=== PATIENT | female | born 1940 | race Caucasian/White ===

== ENCOUNTER 2022-02-10 19:06 | Emergency (ER) | payer MEDICARE, SELFPAY ==
[2022-02-10] VITALS (11 sets, daily range): BP systolic 129–138; BP diastolic 65–78; PULSE 64–80; RESP 12–20; TEMP 36.1; O2SAT 93–100
--- NOTE | ~2022-02-10 | XR_ITS ---
EXAMINATION: XR chest 1V portable DATE: 02/10/2022 19:50 INDICATION: Fall. Dizziness. Weakness. TECHNIQUE: A single frontal view of the chest was obtained. COMPARISON: None. FINDINGS: There is no pneumonia, pleural effusion, or pneumothorax. The heart size is normal. IMPRESSION: 1. No acute cardiopulmonary disease. Reviewed, dictated and finalized at location A.
--- NOTE | ~2022-02-10 | CT_ITS ---
EXAMINATION: CT brain wo con DATE: 02/10/2022 19:47 INDICATION: Dizziness. Weakness. TECHNIQUE: Computed tomography (CT) of the head was performed without intravenous contrast. The mA wa s adjusted according to patient size. Iterative reconstruction technique was employed. The dose-lengt h product was 605.33 mGy-cm. COMPARISON: None FINDINGS: There is no intracranial hemorrhage, acute infarction, or abnormal intracranial mass lesion . There are scattered areas of low attenuation in the cerebral white matter. The ventricles are timothy l in size. The orbits are normal. There is mucosal thickening in the paranasal sinuses. The mastoid a ir cells are normal. IMPRESSION: 1. Mild nonspecific cerebral white matter disease, which likely represents chronic small vessel ische bibiana disease. Reviewed, dictated and finalized at location A. IMPRESSION: 1. 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
[2022-02-10 19:14] LABS: Glucose Point of Care 125 mg/dl (65-105)
--- NOTE | 2022-02-10 19:23 | ECG_ITS ---
Measurements Intervals [place] Rate: 72 P: 15 TX: 144 QRS: 4 QRSD: 85 T: 12 QT: 397 QTc: 437 Interpretive Statements SINUS RHYTHM NORMAL ECG NO PREVIOUS ECG AVAILABLE FOR COMPARISON Electronically Signed On 02-11-2022 9:36:20 CDT by Niraj Darnell M.D.
--- NOTE | 2022-02-10 19:23 | PC.NURSE ---
Dr Castaneda at bedside, requesting patient eat food.
--- NOTE | 2022-02-10 19:25 | ED.WEAKNESS ---
HPI - Weakness General Chief complaint: Weakness Stated complaint: weakness/ BG 38 Source: RN notes reviewed History of Present Illness HPI Narrative: Patient presents emergency department from home via EMS for hypoglycemia. Patient states that she has been feeling weak today and had a total of 2 falls she said her most recent fall was when she just slumped to the ground she states that she had been feeling weak and dizzy today she states that when she went to the ground she did not hit her head and did not have any loss of consciousness EMS was called and when they arrived her blood sugar was noted to be in the 30s. The patient states she does have a history of diabetes and is on oral medication she states she took her medication this morning she states she did not eat dinner this evening she denies any fevers or chills chest pain shortness of breath abdominal pain nausea or vomiting states she did have an upper respiratory infection over the weekend and her and her both been coughing Related Data Allergies Allergy/AdvReac Type Severity Reaction Status Date / Time No Known Allergies Allergy Verified 02/10/22 19:18 Review of Systems Review of Systems: Gen.: Denies fevers or chills Eyes: Denies eye pain or visual change ENT: Denies congestion Respiratory: Denies shortness of breath reports cough CV: Denies chest pain or palpitations GI: Denies abdominal pain nausea, emesis Musculoskeletal: Denies back pain or muscle pain Neuro: Reports weakness Skin: Denies rash Endocrine: See HPI Except as documented, all other systems reviewed and negative [facility] Past Medical History Medical History (Updated 02/10/22 @ 22:42 by Jovan Castaneda DO) Diabetes mellitus Social History Social History (Updated 02/10/22 @ 19:26 by Jovan Castaneda DO) Smoking status: Never smoker Exam Narrative: APPEARANCE: No acute distress, nontoxic, resting in bed EYES: EOMI, PERRL HEENT: Normocephalic, atraumatic, OMM Neck: Supple no midline tenderness palpation full range of motion without pain RESPIRATORY: No respiratory distress Clear to auscultation bilaterally with no rhonchi wheezing or rales. CARDIOVASCULAR: Regular rate and rhythm without murmurs rubs or gallops. ABDOMINAL: Soft, nontender, nondistended, no rebound or guarding MUSCULOSKELETAl: Moves all extremities. No clubbing, cyanosis or edema. No tenderness of bilateral upper and lower extremities NEURO: Awake and alert x 4. Following commands, speech normal, no focal deficits SKIN:: Warm, dry. No rashes lesions or abrasions PSYCHIATRIC: Normal affect/mood, Course Course Emergency Course: Patient ate and drink in the ER patient's blood sugars are remaining elevated. I did discuss with patient her COVID-19 patient's symptoms began 5 days ago and is not a candidate for Paxlovid patient is able get up and ambulate in ED with no difficulty oxygen saturations remain normal with walking pulse ox oxygen stay 96% and wishes to go home will discharge at this time Discussed with patient results of workup and diagnosis. Discussed need for follow-up with primary care, proper use of medication, and reasons to return to the emergency department. Patient understands and agrees to current treatment plan Vital Signs Vital signs: Vital Signs Temperature 97 F L 02/10/22 19:09 Pulse Rate 64 02/10/22 19:09 Respiratory Rate 18 02/10/22 19:09 Blood Pressure 129/65 02/10/22 19:09 Pulse Oximetry 99 02/10/22 19:09 Oxygen Delivery Room Air 02/10/22 19:09 Temperature 97 F L 02/10/22 19:09 Pulse Rate 77 02/10/22 21:08 Respiratory Rate 14 02/10/22 21:08 Blood Pressure 138/66 02/10/22 21:08 Pulse Oximetry 93 02/10/22 21:07 Oxygen Delivery Room Air 02/10/22 19:09 MDM - Weakness Lab Data Result diagrams: 02/10/22 20:00 02/10/22 20:00 Labs: Lab Results 02/10/22 02/10/22 02/10/22 Range/Units 19:10 20:00 20:00 WBC 6
--- NOTE | 2022-02-10 19:49 | PC.NURSE ---
Pt off floor to CT scan
[2022-02-10 20:11] LABS: Basophils Percent Auto 0.3 % (0.2-1.2); Eosinophils Absolute Auto 0.1 K/mm3 (0-0.3); Eosinophils Percent Auto 0.8 % (0-4.4); Hematocrit 38.7 % (37.0-47.0); Hemoglobin 12.9 g/dL (12.0-15.0); Immature Granulocyte Absolute 0.02 K/mm3 (0.00-0.031); Immature Granulocyte Percent A 0.3 % (0-0.5); Lymphocytes Absolute Auto 0.58 K/mm3 (0.9-3.2); Lymphocytes Percent Auto 8.7 % (18.3-44.2); Mean Corpuscular HGB Conc 33.3 g/dl (32-36); Mean Corpuscular Hemoglobin 28.8 pg (26-34); Mean Corpuscular Volume 86.4 fl (80-100); Mean Platelet Volume 10.2 fl (7.4-10.4); Monocytes Absolute Auto 0.6 K/mm3 (0.1-0.6); Monocytes Percent Auto 9.3 % (2.6-8.5); Neutrophils Absolute Auto 5.4 K/mm3 (1.3-6.7); Neutrophils Percent Auto 80.6 % (45.5-73.1); Platelet Count Result 244 k/mm3 (150-375); Red Blood Count 4.48 M/mm3 (4.2-5.4); White Blood Count 6.7 K/mm3 (4.5-10.0)
[2022-02-10 20:22] LABS: Alanine Aminotransferase 34 U/L (6-35); Albumin Level 4.1 g/dL (3.5-5.1); Alkaline Phosphatase 50 U/L (38-126); Anion Gap 12 mmol/L (8-16); Aspartate Amino Transferase 75 U/L (14-36); Bilirubin,Total 0.4 mg/dL (0.2-1.3); Blood Urea Nitrogen 33 mg/dL (7-17); Calcium 9.3 mg/dL (8.4-10.2); Carbon Dioxide 28 mmol/L (22-30); Chloride 98 mmol/L (98-107); Estimated CRCL calculation 29 ml/min; Estimated Glomerular Filt Rate 43; Glucose 113 mg/dL (65-110); Potassium 3.4 mmol/L (3.4-5.0); Sodium 138 mmol/L (137-145)
[2022-02-10 20:25] LABS: Partial Thromboplastin Time 25.1 SECONDS (22.3-36.8)
[2022-02-10 20:47] LABS: SARS-CoV-2 RNA PCR Positive
[2022-02-10 20:53] LABS: Glucose Point of Care 175 mg/dl (65-105)
[2022-02-10 21:21] LABS: Appearance Urine Cloudy (Clear); Bilirubin Urine Negative (Negative); Color Urine Yellow (Yellow); Glucose Urine UA Negative (Negative); Ketones Urine Negative (Negative); Leukocyte Esterase Ur 2+ LEU/UL (Negative); Nitrate Urine Negative (Negative); Protein Urine Trace mg/dL (Negative); Urobilinogen Urine 0.2 mg/dL (<2.0); pH Urine 5.5 (5.0-9.0)
[2022-02-10 21:35] LABS: Add Urine Microscopic? YES; Blood Urine Trace-Intact (Negative)
[2022-02-10 21:42] LABS: Amorphous Sediment Urine Few; Bacteria Urine Trace /hpf; Mucus Urine Rare /lpf; Squamous Epithelial Cell Urine Moderate /hpf (Few); WBC Urine >75 /hpf
[2022-02-10 22:31] LABS: Glucose Point of Care 152 mg/dl (65-105)
--- NOTE | 2022-02-10 22:53 | PC.NURSE ---
Pt ambulated in the [place], o2 sat remained 96
--- NOTE | 2022-02-10 23:12 | PC.NURSE ---
Pt's daughter called per her request
== END 2022-02-10 23:10 | disposition home or self-care (01) ==
PROVIDERS: Emergency Provider Emergency Medicine; PCP Internal Medicine
DX: E11.649 Type 2 diabetes mellitus with hypoglycemia without coma (principal); U07.1 COVID-19; N39.0 Urinary tract infection, site not specified; Z79.84 Long term (current) use of oral hypoglycemic drugs; R90.82 White matter disease, unspecified
CPT/HCPCS: 36415; 70450; 71045; 80053; 81001; 82948; 85025; 85610; 85730; 87086; 87088; 93005; 96365; 99284; C9803; J0696; U0003; U0005